=== PATIENT | female | born 1945 | race Caucasian/White ===

== ENCOUNTER 2023-09-04 20:12 | Emergency (ER) | payer MEDICARE ==
[2023-09-04 20:44] VITALS: RESP 18; TEMP 97.6; O2SAT 97
[2023-09-04 21:26] VITALS: BP 127/79; PULSE 91
--- NOTE | 2023-09-04 21:27 | ERPHSYRPT ---
- History of Present Illness Time Seen by Provider: 09/04/23 20:35 Source: patient Exam Limitations: no limitations Patient Subjective Stated Complaint: pt states hearing aide part stuck in rt ear Triage Nursing Assessment: pt ambulated into the er; pt is axo x4; c/o foreign body in rt ear; black rubber foreign body in rt middle; pt is AKUTAN; pt denies pain; skin PDW; no respiratory distress present; hypertension Physician History: 78-year-old female presents to our ED for removal of foreign body in right ear. Patient states it is the rubber component to her hearing aid. She has no other complaints. Hearing aid became lodged in her ear this evening. She tried pulling it out several times. Patient felt she was pushing it in deeper and has had to come to our ED for evaluation. No headache. No change in hearing acuity. Patient otherwise voices no other complaints or concerns at this time. Portions of this note were created with voice recognition technology. There may be grammatical, spelling, punctuation or sound alike errors Timing/Duration: today Severity: mild Modifying Factors: Improves With: nothing Associated Symptoms: denies symptoms Allergies/Adverse Reactions: amlodipine [From Norvasc] Allergy (Verified 09/04/23 20:33) ampicillin Allergy (Verified 09/04/23 20:33) betamethasone [From Celestone] Allergy (Verified 09/04/23 20:33) lisinopril Allergy (Verified 09/04/23 20:33) penicillin G Allergy (Verified 01/06/15 19:36) Hives Home Medications: Omeprazole 20 MG [Prilosec 20 mg] 40 mg PO DAILY 05/28/13 [History] Isosorbide Mononitrate 30 mg [Imdur 30 MG] 60 mg PO DAILY 10/25/14 [History] Apixaban [Eliquis] 5 mg PO BID 09/04/23 [History] Atorvastatin Calcium [Lipitor 20MG Tablet] 20 mg PO DAILY 09/04/23 [History] Carbidopa/Levodopa/Entacapone [Carbidopa-Levodopa 100 mg-Enta] 1 tab PO TID 09/04/23 [History] Cholecalciferol (Vitamin D3) [Vitamin D] 5,000 unit PO WEEKLY 09/04/23 [History] Cyclobenzaprine HCl 5 mg PO HS PRN 09/04/23 [History] Famotidine 40 mg PO HS 09/04/23 [History] Ferrous Sulfate [Iron] 325 mg PO DAILY 09/04/23 [History] Furosemide [Lasix] 40 mg PO DAILY 09/04/23 [History] Linagliptin [Tradjenta] 5 mg PO DAILY 09/04/23 [History] Meclizine HCl 12.5 mg PO Q8HPRN PRN 09/04/23 [History] Metoprolol Tartrate 50 mg [Lopressor 50 MG] 50 mg PO BID 09/04/23 [History] Potassium Chloride 20 meq PO DAILY 09/04/23 [History] Raloxifene HCl 60 mg PO DAILY 09/04/23 [History] Tramadol HCl 50 mg [Ultram 50 mg] 50 mg PO Q6HPRN PRN 09/04/23 [History] Turmeric Root Extract [Turmeric] 500 mg PO DAILY 09/04/23 [History] Hx Tetanus, Diphtheria Vaccination/Date Given: No Hx Influenza Vaccination/Date Given: No Hx Pneumococcal Vaccination/Date Given: No Travel Risk - International Travel Have you traveled outside of the country in past 3 weeks: No - Coronavirus Screening Are you exhibiting any of the following symptoms?: No Close contact with a COVID-19 positive Pt in past 14-21 Days: No - Vaccine Status Have you recieved a Covid-19 vaccination: Yes [employer] Person: Unknown - Vaccination Dates Date of 2cond Vaccination (if applicable): 2020 Dates if Unknown: 2020 - Review of Systems Constitutional: No Symptoms Eyes: No Symptoms Ears, Nose, & Throat: No Symptoms Respiratory: No Symptoms Cardiac: No Symptoms Abdominal/Gastrointestinal: No Symptoms Genitourinary Symptoms: No Symptoms Musculoskeletal: No Symptoms Skin: No Symptoms Neurological: No Symptoms Psychological: No Symptoms Endocrine: No Symptoms Hematologic/Lymphatic: No Symptoms Immunological/Allergic: No Symptoms - Past Medical History Pertinent Past Medical History: Yes Neurological History: Peripheral Neuropathy, Other ENT History: No Pertinent History Cardiac History: Arrhythmia, High Cholesterol, Hypertension Respiratory History: Asthma, Bronchitis, COPD, Pneumonia, Sleep Apnea Endocrine Medical History: Diabetes Type II Musculoskeletal History: Arthritis, Fractures GI Medical History: Diverticulitis, GERD, Other History: No Pertinent History Psycho-Social History: Depression Female Reproductive Disorders: No Pertinent History Other Medical History: Pt reports that she was dx with Parkinson's Disease in 2002. AFIB - Past Surgical History Past Surgical History: Yes Neuro Surgical History: No Pertinent History Cardiac: No Pertinent History Respiratory: No Pertinent History Gastrointestinal: No Pertinent History Genitourinary: Other Musculoskeletal: Joint Replacement Female Surgical History: Tubal Ligation Other Surgical History: 'BLADDER TIDE UP" - Social History Smoking Status: Former smoker Exposure to second hand smoke: No Drug Use: none Patient Lives Alone: Yes - Nursing Vital Signs Nursing Vital Signs: Initial Vital Signs Temperature 97.6 F 09/04/23 20:30 Pulse Rate 72 09/04/23 20:30 Respiratory Rate 18 09/04/23 20:30 Blood Pressure 158/107 09/04/23 20:30 O2 Sat by Pulse Oximetry 97 09/04/23 20:30 Pain Scale Pain Intensity 0 - Physical Exam General Appearance: no apparent distress, alert Eye Exam: PERRL/EOMI, eyes nml inspection Ears, Nose, Throat Exam: normal ENT inspection, TMs normal, moist mucous membranes, other (Soft rubber foreign body right ear) Neck Exam: normal inspection, non-tender, supple, full range of motion Respiratory Exam: normal breath sounds, airway intact, No respiratory distress Gastrointestinal/Abdomen Exam: soft, normal bowel sounds, No tenderness, No mass Back Exam: normal inspection, normal range of motion, No CVA tenderness, No vertebral tenderness Extremity Exam: normal inspection Neurologic Exam: alert, oriented x 3, cooperative, normal mood/affect, sensation nml, No motor deficits Skin Exam: normal color, warm, dry, No rash Lymphatic Exam: No adenopathy SpO2 Interpretation: normal SpO2: 97 O2 Delivery: Room Air - Course Nursing assessment & vital signs reviewed: Yes - Progress Progress: improved Progress Note: 78-year-old female presents to our ED for removal of foreign body right ear. Foreign body was removed using alligator forceps. No intra or postprocedural complications. Patient tolerated procedure well. No local analgesia needed. No indication for further workup. Patient kept that the foreign body as it belonged to her hearing aid. Portions of this note were created with voice recognition technology. There may be grammatical, spelling, punctuation or sound alike errors Complexity problem addressed is low acute uncomplicated No critical care time Complexity of data reviewed and analyzed is none. No specialized testing or dered. Diagnosis made based on history and physical exam Risk of complication and or risk of morbidity/mortality of patient management is low Vital stable. Time spent to discharge patient is approximately 10 minutes. Plan of care established for shared decision making. No social determinants of health present impede follow-up. Portions of this note were created with voice recognition technology. There may be grammatical, spelling, punctuation or sound alike errors 09/04/23 21:30 Counseled pt/family regarding: diagnosis, need for follow-up - Departure Departure Disposition: Home Clinical Impression: Foreign body of ear, right Condition: Stable Critical Care Time: No Referrals: MARIANNE ERAZO [Primary Care Provider] - Follow up/PCP as directed Additional Instructions: Discharge/Care Plan TYLERSTACI WEBER was seen on 09/04/23 in the Emergency Room. The patient was counseled regarding Diagnosis,Lab results, Imaging studies, need for follow up and when to return to the Emergency Room. Prescriptions given: Discharge Note I have spoken with the patient and/or caregivers. I have explained the patient's condition, diagnosis and treatment plan based on the information available to me at this time. I have answered the patient's and/or caregiver's questions and addressed any concerns. The patient and/or caregivers have as good understanding of the patient's diagnosis, condition and treatment plan as can be expected at this point. The vital signs have been stable. The patient's condition is stable and appropriate for discharge from the emergency department. The patient will pursue further outpatient evaluation with the primary care physician or other designated or consulting physician as outlined in the discharge instructions. The patient and/or caregivers are agreeable to this plan of care and follow-up instructions have been explained in detail. The patient and/or caregivers have received these instruction. The patient/and or caregivers are aware that any significant change in condition or worsening of symptoms should prompt an immediate return to this or the closest emergency department or call 911.
== END 2023-09-04 21:37 | disposition home or self-care (01) ==
LOC: ED 20:12
DX: T16.1XXA Foreign body in right ear, initial encounter (principal); W44.G1XA Audio device entering into or through a natural orifice, initial encounter; E78.5 Hyperlipidemia, unspecified; I10 Essential (primary) hypertension; E11.42 Type 2 diabetes mellitus with diabetic polyneuropathy; Z79.01 Long term (current) use of anticoagulants; Z79.84 Long term (current) use of oral hypoglycemic drugs; Z79.891 Long term (current) use of opiate analgesic; Z79.899 Other long term (current) drug therapy
CPT/HCPCS: 99281